=== PATIENT | female | born 1950 | race Caucasian/White ===

== ENCOUNTER → 2016-06-16 | Outpatient (CLI) | payer MEDICARE, OTHER ==
[~2016-06-16] MED LIST: CALC-803 PO; CHOL100017 PO; FISH1CAP29 PO; MULT-806 PO; VITA1CAP64 PO; magnesium
== END ==
LOC: IMA 10:09
PROVIDERS: ATTEND Physician Assistant
DX: M81.0 Age-related osteoporosis without current pathological fracture (principal); Z87.828 Personal history of other (healed) physical injury and trauma